=== PATIENT | female | born 1945 | race Hispanic/Latino ===

== ENCOUNTER 2023-12-16 07:32 | Day surgery (SDC) | payer MEDICARE ==
[2023-12-14 11:58] LABS: BASOPHILS % 0.5 % (0.0-1.0); EOSINOPHILS # (AUTO) 0.1 (0.0-0.4); EOSINOPHILS % 1.4 % (0.0-6.0); HEMATOCRIT 45.4 % (34.2-44.1); HEMOGLOBIN 14.6 g/dL (12.0-16.0); LYMPHOCYTES # (AUTO) 3.2 (1.0-3.2); LYMPHOCYTES % 40.1 % (18.0-39.1); MEAN CORPUSCULAR HEMOGLOBIN 31.3 pg (28-32); MEAN CORPUSCULAR HGB CONC 32.2 g/dL (31-35); MEAN CORPUSCULAR VOLUME 97.2 fL (81-99); MONOCYTES # (AUTO) 0.8 (0.2-0.8); MONOCYTES % 10.2 % (4.4-11.3); NEUTROPHILS # (AUTO) 3.8 (2.1-6.9); NEUTROPHILS % 47.6 % (38.7-80.0); PLATELET COUNT 142 x10e3/uL (140-360); RED BLOOD COUNT 4.67 x10e6/uL (3.6-5.1); RED CELL DISTRIBUTION WIDTH 13.1 % (11.7-14.4); WHITE BLOOD COUNT 8.06 x10e3/uL (4.8-10.8)
[2023-12-14 12:22] LABS: INR 1.14; PROTHROMBIN TIME 15.2 seconds (11.9-14.5)
[2023-12-14 12:32] LABS: ALBUMIN 3.3 g/dL (3.5-5.0); ALBUMIN/GLOBULIN RATIO 0.8 (0.8-2.0); ANION GAP 12.4 mmol/L (8-16); BILIRUBIN,TOTAL 0.4 mg/dL (0.2-1.2); CALCIUM 9.2 mg/dL (8.4-10.2); CREATININE, SERUM 0.68 mg/dL (0.57-1.11); POTASSIUM 4.4 mmol/L (3.5-5.1); TOTAL PROTEIN 7.4 g/dL (6.5-8.1)
[2023-12-16] VITALS (17 sets, daily range): BP systolic 96–144; BP diastolic 47–70; PULSE 54–75; RESP 16–22; TEMP 97; O2SAT 96–100
[~2023-12-16] VITALS: Ht 152.4 cm; Wt 70.3 kg
[2023-12-16] MEDS ORDERED: JARDIANCE25 MG PO (08:28)
[2023-12-16] MEDS ORDERED: ATORVASTATIN CA20 MG PO (08:28)
[2023-12-16] MEDS ORDERED: REPAGLINIDE0.5 MG PO (08:28)
[2023-12-16] MEDS ORDERED: METFORMIN HCL500 M1 PO (08:28)
[2023-12-16] MEDS ORDERED: NEURONTIN100 MG PO (08:28)
[2023-12-16] MEDS ORDERED: LISINOPRIL2.5 MG PO (08:28)
[2023-12-16] MEDS ORDERED: SODIUM CHLORIDE 0.9% 1000ML 1,000 ML ONE (09:36)
[2023-12-16] MEDS ORDERED: VERAPAMIL HCL 2.5 MG/ML 2 ML VIAL ONE (09:36)
[2023-12-16] MEDS ORDERED: IOPAMIDOL 370 MG/ML 100 ML INFUS..BTL INJ ONE (09:36)
[2023-12-16] MEDS ORDERED: FENTANYL CITRATE/PF 100MCG/2 ML INJ ONE (09:36)
[2023-12-16] MEDS ORDERED: NITROGLYCERIN/D5W 200 MCG/ML 250 ML ONE (09:36)
[2023-12-16] MEDS ORDERED: HEPARIN SOD (PORCINE) 1000 UNIT/ML 30ML ONE (09:36)
[2023-12-16] MEDS ORDERED: LIDOCAINE HCL 2% LOCAL 20 ML VIAL ONE (09:36)
[2023-12-16] MEDS ORDERED: HEPARIN SOD/SOD CHLORIDE 2,000 ML ONE (09:36)
[2023-12-16] MEDS ORDERED: MIDAZOLAM HCL 2 MG/2 ML VIAL ONE (09:37)
[2023-12-16] MEDS ORDERED: CLOPIDOGREL BISULFATE 75 MG TAB ONE (10:38)
[2023-12-16] MEDS ORDERED: ASPIRIN 325 MG TAB ONE (10:38)
== END 2023-12-16 15:00 | disposition home or self-care (01) ==
LOC: CATH LAB 07:32
PROVIDERS: ATTEND Internal Medicine Cardiovascular Disease
DX: I25.118 Atherosclerotic heart disease of native coronary artery with other forms of angina pectoris (principal); E78.00 Pure hypercholesterolemia, unspecified; E11.9 Type 2 diabetes mellitus without complications; Z88.8 Allergy status to other drugs, medicaments and biological substances; Z01.812 Encounter for preprocedural laboratory examination; Z79.84 Long term (current) use of oral hypoglycemic drugs; Z79.899 Other long term (current) drug therapy; Z68.30 Body mass index [BMI] 30.0-30.9, adult; Z82.49 Family history of ischemic heart disease and other diseases of the circulatory system
CPT/HCPCS: 93458; C9600; 36415; 80053; 80061; 85025; 85610; 92928; 99152; C1725; C1874; C1887; J1644; J2003; J2250; J7030; Q9967